=== PATIENT | male | born 1970 ===

== ENCOUNTER 2017-05-10 23:58 | Emergency (ER) | payer OTHER ==
[2017-05-11] MEDS ORDERED: IBUPROFEN 800 MG TAB ONE (00:07)
[2017-05-11 00:34] LABS: RAPID GROUP A STREP NEGATIVE (NEGATIVE)
[2017-05-11] MEDS ORDERED: SODIUM CHLORIDE 0.9% 1000ML 1,000 ML IV ONE (01:26)
[2017-05-11] MEDS ORDERED: ACETAMINOPHEN EXTRA STRENGTH 500 MG TABLET ONE (01:26)
[2017-05-11 01:30] LABS: BASOPHILS % (AUTO) 0.5 % (0.0-5.0); HEMATOCRIT 41.5 % (42-54); LYMPHOCYTES % (AUTO) 5.8 % (21.0-51.0); MEAN CORPUSCULAR HEMOGLOBIN 29.7 pg (27.0-33.0); MEAN CORPUSCULAR HGB CONC 34.8 g/dL (32.0-36.0); MEAN CORPUSCULAR VOLUME 85.3 fL (79-99); MONOCYTES % (AUTO) 8.2 % (3.0-13.0); NEUTROPHILS % (AUTO) 85.5 % (40.0-77.0); PLATELET COUNT (AUTO) 220 K/uL (130-400); RED BLOOD CELL COUNT(AUTO) 4.86 MIL/uL (4.50-6.20); RED CELL DISTRIBUTION WIDTH 12.9 % (11.0-15.5); WHITE BLOOD COUNT (AUTO) 11.1 K/uL (4.8-10.8)
[2017-05-11 01:37] LABS: CREATININE 0.9 mg/dL (0.5-1.5); POTASSIUM 3.7 mmol/L (3.5-5.1)
[2017-05-11 01:42] LABS: ALBUMIN 3.6 g/dL (3.5-5.0); BILIRUBIN,TOTAL 0.6 mg/dL (0.2-1.0); TOTAL PROTEIN, SERUM 7.8 g/dL (6.0-8.3)
[2017-05-11] MEDS ORDERED: CEFTRIAXONE SODIUM 1 GM ONE (02:10)
== END 2017-05-11 03:47 | disposition home or self-care (01) ==
LOC: EDH 23:58
DX: E86.0 Dehydration (principal); J02.9 Acute pharyngitis, unspecified; E11.9 Type 2 diabetes mellitus without complications; I10 Essential (primary) hypertension; E78.5 Hyperlipidemia, unspecified; Z88.8 Allergy status to other drugs, medicaments and biological substances
CPT/HCPCS: 36415; 71045; 80053; 85025; 87040 ×2; 87804 ×2; 87880; 96361; 96374; 99285; J0696; J7030

== ENCOUNTER 2021-08-04 12:07 | Emergency (ER) | payer OTHER ==
[~2021-08-04] VITALS: Ht 182.9 cm; Wt 106.6 kg
[2021-08-04] MEDS ORDERED: LIDOCAINE HCL 2% VISCOUS 15 ML UDCUP PO ONE (12:30)
[2021-08-04 12:37] LABS: BASOPHILS % (AUTO) 0.3 % (0.0-5.0); EOSINOPHILS % (AUTO) 1.7 % (0.0-8.0); HEMATOCRIT 47.7 % (42-54); LYMPHOCYTES % (AUTO) 24.6 % (21.0-51.0); MEAN CORPUSCULAR HEMOGLOBIN 29.2 pg (27.0-33.0); MEAN CORPUSCULAR HGB CONC 33.3 g/dL (32.0-36.0); MEAN CORPUSCULAR VOLUME 87.7 fL (79-99); MONOCYTES % (AUTO) 6.2 % (3.0-13.0); PLATELET COUNT (AUTO) 259 K/uL (130-400); RED BLOOD CELL COUNT(AUTO) 5.44 MIL/uL (4.50-6.20); RED CELL DISTRIBUTION WIDTH 12.4 % (11.0-15.5); WHITE BLOOD COUNT (AUTO) 8.8 K/uL (4.8-10.8)
[2021-08-04 12:55] LABS: ALBUMIN 3.9 g/dL (3.5-5.0); BILIRUBIN,TOTAL 0.5 mg/dL (0.2-1.0); CRP QUANTITATIVE 11.1 mg/L (0.00-9.0); TOTAL PROTEIN, SERUM 8.1 g/dL (6.0-8.3)
[2021-08-04] MEDS ORDERED: IOHEXOL-350 50ML VIAL IV ONE (13:34)
[2021-08-04] MEDS ORDERED: MORPHINE 4 MG SYG IVP ONE (15:00)
[2021-08-04] MEDS ORDERED: CLINDAMYCIN IVPB 600MG/50ML 50 ML IV SCH (15:00)
[2021-08-04] MEDS ORDERED: ONDANSETRON 4MG INJ IVP ONE (15:00)
[2021-08-04] MEDS ORDERED: ACET-2079 PO (15:04)
[2021-08-04] MEDS ORDERED: CLIN-141 PO (15:04)
[2021-08-04 15:41] VITALS: BP 121/79
== END 2021-08-04 15:57 | disposition home or self-care (01) ==
LOC: EDH 12:07
DX: R59.0 Localized enlarged lymph nodes (principal); K14.8 Other diseases of tongue; K08.89 Other specified disorders of teeth and supporting structures; E11.9 Type 2 diabetes mellitus without complications; I10 Essential (primary) hypertension
CPT/HCPCS: 36415; 70491; 80053; 83605; 84145; 84484; 85025; 86140; 96365; 96375; 99285; J2270; J2405; J3490; Q9967